=== PATIENT | male | born 1950 | race Hispanic/Latino ===

== ENCOUNTER 2017-07-02 19:00 | Outpatient (CLI) | payer MEDICARE | END 2017-07-02 19:01 | disposition home or self-care (01) | LOC: SLEEPLAB 19:00 | PROVIDERS: ATTEND Internal Medicine | DX: G47.33 Obstructive sleep apnea (adult) (pediatric) (principal); R06.81 Apnea, not elsewhere classified | CPT/HCPCS: 95806 ==

== ENCOUNTER 2018-06-14 08:02 | Outpatient (CLI) | payer MEDICARE ==
--- NOTE | 2018-06-14 09:26 | CT ---
LOW DOSE CT OF THE CHEST WITHOUT CONTRAST: Comparison: 04-30-17 History: Nicotine dependence; smoker. Technique: Multiple contiguous axial images were obtained in a CT of the chest without contrast for l ow dose cancer screening protocol. Sagittal and coronal reformats were performed. FINDINGS: No suspicious pulmonary nodules are seen. No pneumothorax or pleural effusion are seen. There are a f ew emphysematous changes in the lung apices. Atelectasis is seen in the lingula. The heart is normal in size without focal cardiac abnormality. No hilar or mediastinal lymphadenopath y are seen. Calcifications are seen in the coronary arteries. The previously seen opacity in the trachea has resolved and likely represent a small amount of mucous . Degenerative changes are seen in the spine. The visualized subdiaphragmatic structures are unremarkab le. IMPRESSION: Lungs RADS category 1 - negative. POS: [facility]UPINDER
== END 2018-06-14 08:03 | disposition home or self-care (01) ==
LOC: CT 08:02
PROVIDERS: ATTEND Family Medicine
DX: F17.210 Nicotine dependence, cigarettes, uncomplicated (principal)
CPT/HCPCS: G0297

== ENCOUNTER 2019-07-04 15:11 | Outpatient (CLI) | payer MEDICARE ==
--- NOTE | 2019-07-04 15:50 | ULT ---
BILATERAL CAROTID ULTRASOUND: 07/04/19 HISTORY: Vertigo. TECHNIQUE: Jernigan scale, color flow and spectral Doppler imaging of the extracranial carotid arteries was performe d bilaterally. FINDINGS: There is plaque formation on both sides. The peak systolic velocity in the right ICA measures 93 cm/s with an end diastolic velocity of 22 cm/ s and systolic ratio of 0.75. The peak systolic velocity in the left ICA measures 91 cm/s with an end diastolic velocity of 37 cm/s and systolic ratio of 0.84. Flow in both vertebral arteries remains antegrade. IMPRESSION: No hemodynamically significant stenosis. POS: [facility]
== END 2019-07-04 15:12 | disposition home or self-care (01) ==
LOC: BICULT 15:11
PROVIDERS: ATTEND Psychiatry & Neurology Neurology
DX: R42 Dizziness and giddiness (principal)
CPT/HCPCS: 93880

== ENCOUNTER 2020-04-09 09:19 | Outpatient (CLI) | payer MEDICARE ==
--- NOTE | 2020-04-09 09:42 | RAD ---
Exam: XR Ankle Rt 3 View STANDARD HISTORY: Acute right ankle pain. COMPARISON: None FINDINGS: Tiny corticated osseous density is seen just inferior to the lateral malleolus which may represent an accessory center of ossification versus a remote avulsion injury. A posterior calcaneal enthesophyte is visualized. No acute fracture, dislocation, or other acute osseous abnormality is identified. IMPRESSION: No acute osseous abnormality is identified.
== END 2020-04-09 09:20 | disposition home or self-care (01) ==
LOC: BICRAD 09:19
PROVIDERS: ATTEND Family Medicine
DX: M25.571 Pain in right ankle and joints of right foot (principal)

== ENCOUNTER 2021-12-28 09:02 | Outpatient (CLI) | payer MEDICARE | END 2021-12-28 09:03 | disposition home or self-care (01) | LOC: BICRAD 09:02 | PROVIDERS: ATTEND Family Medicine | DX: M25.561 Pain in right knee (principal); M25.562 Pain in left knee; R05.9 Cough, unspecified; M11.262 Other chondrocalcinosis, left knee; M11.261 Other chondrocalcinosis, right knee; M17.0 Bilateral primary osteoarthritis of knee; M79.89 Other specified soft tissue disorders | CPT/HCPCS: 71046 ==

== ENCOUNTER 2022-07-28 10:03 | Observation (INO) | payer MEDICARE ==
[2022-07-28 10:46] LABS: #Basophils 0.1 thou/uL (0.0-0.2); #Eosinphils 0.1 thou/uL (0.0-0.7); #Lymphocytes 2.2 thou/uL (1.20-3.40); #Monocytes 0.5 thou/uL (0.11-0.59); #Neutrophils 4.2 thou/uL (1.40-6.50); %Basophils 0.8 % (0.0-1.0); %Eosinophils 1.9 % (0.0-10.0); %Lymphocytes 31.5 % (21.0-51.0); %Neutrophils 58.9 % (42.0-75.0); Hemoglobin 16.5 g/dL (14.0-18.0); Mean Corpuscular HGB CONC 33.3 g/dL (32.0-36.0); Mean Corpuscular Hemoglobin 30.5 pg (27.0-31.0); Mean Corpuscular Volume 91.6 fl (78.0-98.0); Mean Platelet Volume 8.5 fL (7.4-10.4); Platelet Count 234 10x3/uL (130-400); RBC Distribution Width 12.2 % (11.5-14.5); Red Blood Cell (RBC) Count 5.42 mill/uL (4.70-6.10); White Blood Cell (WBC) Count 7.1 10x3/uL (4.8-10.8)
[2022-07-28 11:48] LABS: Albumin 4.3 g/dL (3.4-4.8)
[2022-07-28 11:49] LABS: Chloride 98 mmol/L (98-107); Potassium 4.5 mmol/L (3.5-5.1); Sodium 133 mmol/L (136-145)
[2022-07-28 11:50] LABS: Calcium 10.1 mg/dL (7.8-10.44)
[2022-07-28 11:51] LABS: Globulin 3.6 g/dL (2.4-3.5); Protein, Total 7.9 g/dL (5.8-8.1)
[2022-07-28 11:52] LABS: Anion Gap 13 mmol/L (10-20); Carbon Dioxide 27 mmol/L (23-31)
[2022-07-28 11:53] LABS: Alkaline Phosphatase 135 U/L (40-110); Bilirubin, Total 0.8 mg/dL (0.2-1.2)
[2022-07-28 11:54] LABS: Calc. Creatinine Clearance 0 mL/min (70-130); Estimated GFR 58
[2022-07-28 11:55] LABS: BUN (Urea Nitrogen) 12 mg/dL (8.4-25.7); Glucose 462 mg/dL (83-110)
[2022-07-28 11:56] LABS: AST (SGOT) 22 U/L (5-34)
[2022-07-28 11:57] LABS: ALT (SGPT) 40 U/L (8-55); Lipase 44 U/L (8-78)
[2022-07-28] MEDS ORDERED: Aspirin Chewable 81 MG TAB ONE (12:53)
[2022-07-28] MEDS ORDERED: Nitroglycerin 0.4 MG TAB (25 Tab Bottle) SL PRN (12:57)
[2022-07-28] MEDS ORDERED: Acetaminophen 325 MG TAB PO PRN (12:59)
[2022-07-28] MEDS ORDERED: Ondansetron ODT 4 MG TAB PO PRN (12:59)
[2022-07-28] MEDS ORDERED: Senokot S 8.6-50 MG TAB PO PRN (12:59)
[2022-07-28] MEDS ORDERED: Ondansetron PF 4 MG/2 ML Vial IVP PRN (12:59)
[2022-07-28] MEDS ORDERED: Calcium Carbonate 500 MG ChewTAB PO PRN (12:59)
[2022-07-28] MEDS ORDERED: Electrolyte Replacement Protocol FS SCH (13:00)
[2022-07-28] MEDS ORDERED: Insulin Regular 300 UNITS/3 ML VIAL SC PRN ×2 (13:01)
[2022-07-28] MEDS ORDERED: Dextrose 50% Abboject 50 ML SYRINGE SLOW IVP PRN (13:01)
[2022-07-28] MEDS ORDERED: Dextrose 5% in Water 1,000 ML IV PRN (13:01)
[2022-07-28] MEDS ORDERED: Meclizine HCl 25 MG TAB PO PRN (13:02)
[2022-07-28] MEDS ORDERED: hydrALAZINE 25 MG TAB PO PRN (13:02)
[2022-07-28] MEDS ORDERED: glipiZIDE 5 MG TAB PO SCH (14:00)
[2022-07-28 14:01] LABS: Troponin I Less than 0.010 ng/mL (< 0.028)
[2022-07-28 16:50] LABS: Troponin I Less than 0.010 ng/mL (< 0.028)
[2022-07-28 17:13] VITALS: BMI 32.0
[2022-07-28] MEDS: metFORMIN 500 MG TAB PO SCH (17:26)
[2022-07-28] MEDS ORDERED: Metoprolol Tartrate 50 MG TAB PO SCH ×2 (18:15→21:00)
[2022-07-28] MEDS: Famotidine 20 MG TAB PO SCH (20:31)
[2022-07-28] MEDS ORDERED: Atorvastatin Calcium 20 MG TAB PO SCH (21:00)
[2022-07-28] MEDS ORDERED: Enoxaparin Sodium 40 MG/0.4 ML SYRINGE SC SCH (21:00)
[2022-07-29 05:07] LABS: #Basophils 0.1 thou/uL (0.0-0.2); #Eosinphils 0.2 thou/uL (0.0-0.7); #Lymphocytes 2.4 thou/uL (1.20-3.40); #Monocytes 0.5 thou/uL (0.11-0.59); #Neutrophils 3.5 thou/uL (1.40-6.50); %Basophils 0.8 % (0.0-1.0); %Eosinophils 2.5 % (0.0-10.0); %Lymphocytes 36.2 % (21.0-51.0); %Monocytes 7.1 % (0.0-10.0); %Neutrophils 53.4 % (42.0-75.0); Mean Corpuscular HGB CONC 33.1 g/dL (32.0-36.0); Mean Corpuscular Hemoglobin 30.3 pg (27.0-31.0); Mean Corpuscular Volume 91.7 fl (78.0-98.0); Platelet Count 206 10x3/uL (130-400); RBC Distribution Width 12.1 % (11.5-14.5); Red Blood Cell (RBC) Count 4.61 mill/uL (4.70-6.10); White Blood Cell (WBC) Count 6.6 10x3/uL (4.8-10.8)
[2022-07-29 05:25] LABS: Anion Gap 10 mmol/L (10-20); BUN (Urea Nitrogen) 11 mg/dL (8.4-25.7); Calc. Creatinine Clearance 90 mL/min (70-130); Calcium 9.2 mg/dL (7.8-10.44); Carbon Dioxide 26 mmol/L (23-31); Chloride 103 mmol/L (98-107); Estimated GFR 85; Glucose 286 mg/dL (83-110); Magnesium 1.8 mg/dL (1.6-2.6); Potassium 4.3 mmol/L (3.5-5.1); Sodium 135 mmol/L (136-145)
[2022-07-29] MEDS ORDERED: Magnesium 2 GM/50 ML(in water) 2 GM in Premix Bag 1 BAG IVPB SCH ×2 (06:30→09:00)
[2022-07-29] MEDS ORDERED: glipiZIDE 5 MG TAB PO SCH (07:30)
[2022-07-29] MEDS ORDERED: Metoprolol Tartrate 50 MG TAB PO SCH (09:00)
[2022-07-29] MEDS ORDERED: Aspirin 325 mg Enteric Coated Tablet PO SCH (09:00)
[2022-07-29] MEDS: metFORMIN 500 MG TAB PO SCH (11:47)
[2022-07-29] MEDS: Famotidine 20 MG TAB PO SCH (11:48)
[2022-07-29] MEDS ORDERED: Regadenoson 0.4 MG/5 ML SYRINGE ONE (12:18)
[2022-07-29 15:39] VITALS: BP 148/69; TEMP 97.9
== END 2022-07-29 16:22 | disposition home or self-care (01) ==
LOC: ERS 10:03 → ERHOLD 12:39 → 2SW 16:44
PROVIDERS: ADMIT Internal Medicine; ATTEND Internal Medicine
DX: R07.2 Precordial pain (principal); R42 Dizziness and giddiness; E87.1 Hypo-osmolality and hyponatremia; E11.65 Type 2 diabetes mellitus with hyperglycemia; I12.9 Hypertensive chronic kidney disease with stage 1 through stage 4 chronic kidney disease, or unspecified chronic kidney disease; E11.22 Type 2 diabetes mellitus with diabetic chronic kidney disease; N18.2 Chronic kidney disease, stage 2 (mild); E78.5 Hyperlipidemia, unspecified; G47.33 Obstructive sleep apnea (adult) (pediatric); I25.10 Atherosclerotic heart disease of native coronary artery without angina pectoris; K21.9 Gastro-esophageal reflux disease without esophagitis; J44.9 Chronic obstructive pulmonary disease, unspecified; F17.210 Nicotine dependence, cigarettes, uncomplicated; R94.31 Abnormal electrocardiogram [ECG] [EKG]; Z91.14 Patient's other noncompliance with medication regimen; Z79.84 Long term (current) use of oral hypoglycemic drugs; Z79.899 Other long term (current) drug therapy; Z20.822 Contact with and (suspected) exposure to COVID-19
CPT/HCPCS: 71045; 78452; 80048; 80053; 82962 ×2; 83690; 83735; 84484 ×2; 85025 ×2; 85379; 93005; 93017; 94760; 99285; A9500; U0003; U0005; 36415; 36416; 96372; 96374; G0378; J1650; J1815; J2785; J3475

== ENCOUNTER 2023-08-31 06:56 | Outpatient (CLI) | payer MEDICARE | END 2023-08-31 06:57 | disposition home or self-care (01) | LOC: BICCT 06:56 | PROVIDERS: ATTEND Family Medicine | DX: Z12.2 Encounter for screening for malignant neoplasm of respiratory organs (principal); F17.218 Nicotine dependence, cigarettes, with other nicotine-induced disorders | CPT/HCPCS: 71271 ==

== ENCOUNTER 2023-11-13 11:20 | Outpatient (CLI) | payer MEDICARE | END 2023-11-13 11:21 | disposition home or self-care (01) | LOC: BICRAD 11:20 | PROVIDERS: ATTEND Family Medicine | DX: J44.1 Chronic obstructive pulmonary disease with (acute) exacerbation (principal); J98.11 Atelectasis; J98.4 Other disorders of lung | CPT/HCPCS: 71046 ==

== ENCOUNTER 2023-11-29 11:21 | Outpatient (CLI) | payer MEDICARE | END 2023-11-29 11:22 | disposition home or self-care (01) | LOC: CT 11:21 | PROVIDERS: ATTEND Family Medicine | DX: R10.13 Epigastric pain (principal); I77.4 Celiac artery compression syndrome | CPT/HCPCS: 71270; 74178 ==

== ENCOUNTER 2023-11-29 15:38 | Emergency (ER) | payer MEDICARE ==
[2023-11-29 17:46] LABS: Troponin I Less than 0.010 ng/mL (< 0.028)
[2023-11-29] MEDS ORDERED: Aspirin Chewable 81 MG TAB ONE (18:19)
== END 2023-11-29 19:35 | disposition home or self-care (01) ==
LOC: ERS 15:38
DX: R10.10 Upper abdominal pain, unspecified (principal); I77.1 Stricture of artery; I10 Essential (primary) hypertension; E78.5 Hyperlipidemia, unspecified; E11.9 Type 2 diabetes mellitus without complications; F17.210 Nicotine dependence, cigarettes, uncomplicated; Z79.899 Other long term (current) drug therapy; Z79.84 Long term (current) use of oral hypoglycemic drugs; R53.1 Weakness
CPT/HCPCS: 80053; 83605; 83690; 84484; 85025; 93005